=== PATIENT | female | born 1975 | race Caucasian/White ===

== ENCOUNTER 2019-06-06 17:09 | Emergency (ER) | payer MEDICAID ==
[~2019-06-06] VITALS: Ht 160 cm; Wt 73.0 kg
[2019-06-06] MEDS ORDERED: SODIUM CHLORIDE 0.9% 1,000 ML IV ONE (20:14)
[2019-06-06] MEDS ORDERED: MAGNESIUM/ALUMINUM HYDROXIDE/SIMETHICONE 30ML UDC PO ONE (20:15)
[2019-06-06] MEDS ORDERED: FAMOTIDINE 20MG/2ML VIAL IV ONE (20:15)
[2019-06-06 21:00] LABS: BASOPHILS % 0.6 % (0.0-2.0); EOSINOPHILS % 6.3 % (0.0-5.0); HEMATOCRIT. 40.6 % (36.0-48.0); HEMOGLOBIN. 13.8 g/dL (12.0-16.0); LYMPHOCYTES % 30.2 % (20.0-50.0); MEAN CORPUSCULAR HEMOGLOBIN 29.9 pg (28.0-32.0); MEAN CORPUSCULAR VOLUME 88.2 fL (81.0-99.0); MONOCYTES % 6.1 % (2.0-8.0); NEUTROPHILS % 56.8 % (40.0-76.0); PLATELET 260 x1000/uL (130-400); RED CELL DISTRIBUTION WIDTH 13.2 % (11.6-14.6)
[2019-06-06 21:01] LABS: CLARITY URINE CLEAR (CLEAR); COLOR URINE YELLOW (YELLOW); KETONES URINE 1+ (NEGATIVE); LEUKOCYTE ESTERASE URINE NEGATIVE (NEGATIVE); NITRITE URINE NEGATIVE (NEGATIVE); OCCULT BLOOD URINE NEGATIVE (NEGATIVE); PROTEIN URINE NEGATIVE (NEGATIVE); SPECIFIC GRAVITY URINE 1.018 (1.005-1.030); UROBILINOGEN URINE 0.2 E.U./dL (0.2-1.0)
[2019-06-06 21:03] LABS: CHLORIDE 107 mEq/L (98-107)
[2019-06-06 21:05] LABS: INR 1.1; PARTIAL THROMBOPLASTIN TIME 30.5 sec (23.4-31.0)
[2019-06-06 21:07] LABS: ETHANOL BLOOD < 10 mg/dL
[2019-06-06 21:14] LABS: HCG SCREEN NEGATIVE
[2019-06-06 23:07] VITALS: BP 124/76
== END 2019-06-06 23:09 | disposition home or self-care (01) ==
LOC: ER 17:10
DX: K29.70 Gastritis, unspecified, without bleeding (principal); K21.9 Gastro-esophageal reflux disease without esophagitis; E78.00 Pure hypercholesterolemia, unspecified; I10 Essential (primary) hypertension
CPT/HCPCS: 36415; 71045; 80053; 80320; 81003; 83690; 83880; 84484; 84703; 85025; 85610; 85730; 93005; 96361; 96374; 99284; J3490; J7030; G0480

== ENCOUNTER 2022-09-09 15:50 | Emergency (ER) | payer MEDICAID, OTHER ==
[~2022-09-09] VITALS: Ht 165.1 cm; Wt 70.0 kg
[2022-09-09] MEDS ORDERED: IBUPROFEN 400MG TABLET PO ONE (19:15)
[2022-09-09] MEDS ORDERED: IBUP-2028 MT (20:30)
[2022-09-09 20:42] VITALS: BP 125/86
== END 2022-09-09 20:48 | disposition home or self-care (01) ==
LOC: ER 15:50
DX: S63.91XA Sprain of unspecified part of right wrist and hand, initial encounter (principal); S63.591A Other specified sprain of right wrist, initial encounter; M25.531 Pain in right wrist; M79.641 Pain in right hand; I10 Essential (primary) hypertension; E78.00 Pure hypercholesterolemia, unspecified; W01.0XXA Fall on same level from slipping, tripping and stumbling without subsequent striking against object, initial encounter; Y93.9 Activity, unspecified; Y92.9 Unspecified place or not applicable
CPT/HCPCS: 73110; 73130; 99284